=== PATIENT | female | born 1935 | race Caucasian/White ===

== ENCOUNTER → 2016-07-18 | Day surgery (SDC) | payer MEDICARE, OTHER ==
[~2016-07-18] VITALS: Ht 157.5 cm; Wt 54.4 kg
[~2016-07-18] MED LIST: BUDESONIDE0.5 MG/2 M INH; LIPITOR TAB 2020 MG PO; LISINOPRIL-HCT1 EAC1 PO; LOVAZA1 GM PO; MIRALAX17 GM PO; NASONEX17 GM; NORCO 10-325 T1 EACH PO; NORVASC 5 MG TAB5 MG PO; PROLIA INJ60 MG/1 ML SC; PROTONIX40 MG PO; SPIRIVA HANDIH18 MCG INH; SYMBICORT 160-1 INHA INH; VENTOLIN/PROVE0.5 ML INH; XYZAL5 MG PO; ZOFRAN4 MG PO; ZOLOFT50 MG PO
== END | disposition home or self-care (01) ==
LOC: OR 08:10
PROVIDERS: Internal Medicine Gastroenterology
PROC: 0DB68ZX Excision of Stomach, Via Natural or Artificial Opening Endoscopic, Diagnostic (ICD-10-PCS; principal; 2016-07-18 13:15)
DX: K29.50 Unspecified chronic gastritis without bleeding (principal); K44.9 Diaphragmatic hernia without obstruction or gangrene; K22.4 Dyskinesia of esophagus; M81.0 Age-related osteoporosis without current pathological fracture; J44.9 Chronic obstructive pulmonary disease, unspecified; J96.11 Chronic respiratory failure with hypoxia; F17.200 Nicotine dependence, unspecified, uncomplicated; Z88.0 Allergy status to penicillin; Z88.1 Allergy status to other antibiotic agents; Z88.8 Allergy status to other drugs, medicaments and biological substances; Z79.891 Long term (current) use of opiate analgesic; Z79.899 Other long term (current) drug therapy; Z90.49 Acquired absence of other specified parts of digestive tract
CPT/HCPCS: J2250; J7030